=== PATIENT | male | born 1985 | race Caucasian/White ===

== ENCOUNTER 2020-02-14 06:54 | Outpatient (NON) | payer BC, SELFPAY ==
[2020-02-15 16:06] LABS: SARS-CoV-2 RNA PCR Negative
== END 2020-02-14 06:55 ==
PROVIDERS: Visit Provider Physician Assistant
DX: R05 Cough (principal); Z20.828 Contact with and (suspected) exposure to other viral communicable diseases
CPT/HCPCS: 87635; C9803; U0003

== ENCOUNTER 2022-01-08 21:48 | Emergency (ER) | payer BC, SELFPAY ==
--- NOTE | ~2022-01-08 | CT_ITS ---
EXAMINATION: CT brain wo con DATE: 01/08/2022 22:41 INDICATION: Syncope. Left facial injury after fall. TECHNIQUE: Computed tomography (CT) of the head was performed without intravenous contrast. The mA wa s adjusted according to patient size. Iterative reconstruction technique was employed. Exam dose: 60 5.33 mGy-cm total exam DLP. COMPARISON: None FINDINGS: No intracranial mass lesion or hemorrhage or cerebrovascular accident. No midline shift or mass effect. Normal ventricular size. Normal lange-white matter differentiation. No subdural or epidur al hematoma. No skull fracture or bone destruction. The mastoid air cells and included paranasal sinuses are unremarkable. IMPRESSION: Negative Reviewed, dictated and finalized at [facility] Reviewed, dictated and finalized at [facility]. IMPRESSION: Negative
--- NOTE | ~2022-01-08 | CT_ITS ---
EXAMINATION: CT facial bones wo con DATE: 01/08/2022 22:41 INDICATION: Left facial injury after fall TECHNIQUE: Computed tomography (CT) of the facial bones and maxillofacial region was performed withou t intravenous contrast. Automated exposure control and iterative reconstruction technique were employ ed. Exam dose: 309.97 mGy-cm total exam DLP. COMPARISON: None. FINDINGS: The frontozygomatic sutures, orbital rims and floyd, nasal bones, anterior maxillary spine, zygomatic arches and maxillary bones are intact. Normal alignment at the temporomandibular joints. N o mandibular fracture. There are several mucous retention cysts or polyps of the right maxillary sinus measuring up to 1.58 cm and mild mucoperiosteal thickening of the left maxillary sinus. IMPRESSION: No facial fracture Reviewed, dictated and finalized at [facility]. Reviewed, dictated and finalized at [facility]. IMPRESSION: No facial fracture
[2022-01-08 21:51] VITALS: BP 141/98; PULSE 70; RESP 16; TEMP 37.3; O2SAT 99
--- NOTE | 2022-01-08 21:53 | ECG_ITS ---
Measurements Intervals [place] Rate: 77 P: 55 [place]: 155 QRS: 44 QRSD: 100 T: 58 QT: 362 QTc: 411 Interpretive Statements SINUS RHYTHM INCOMPLETE RIGHT BUNDLE BRANCH BLOCK BASELINE ARTIFACT- II, III, AVF BORDERLINE ECG NO PREVIOUS ECG AVAILABLE FOR COMPARISON Electronically Signed On 01-09-2022 7:01:35 CDT by Lamberto Leyva D.O.
--- NOTE | 2022-01-08 22:27 | ED.GENADULT ---
HPI - General Adult General Chief complaint: Syncope Stated complaint: head trauma Time Seen by Provider: 01/08/22 22:06 History of Present Illness HPI narrative: 36-year-old male here for evaluation after having a syncopal episode. Patient states he had just finished eating dinner and was sitting at the kitchen table and he was drinking some liquid that felt he got stuck in his esophagus. Patient states he did not have any coughing or choking spell but states he felt dizzy and lightheadedness and ultimately fell forward and struck his head on the table. Patient did fall to the ground and immediately woke up. Patient states he did have a similar episode which also involve esophageal issue while swallowing that caused a single episode approximately 10 years ago. Related Data Allergies Allergy/AdvReac Type Severity Reaction Status Date / Time Penicillins Allergy Unknown Rash Verified 08/24/18 13:55 Review of Systems Review of Systems: CONSTITUTIONAL: Denies fever, chills, or sweats. EYES: Denies visual changes, redness, or discharge. ENT: Denies rhinorrhea, congestion, sore throat, or otalgia. CARDIOVASCULAR: Denies chest pain, palpitations, or edema. RESPIRATORY: Denies cough or dyspnea. GASTROINTESTINAL: Denies abdominal pain, nausea, vomiting, or diarrhea. GENITOURINARY: Denies dysuria or hematuria. SKIN: Injury to left eyebrow MUSCULOSKELETAL: Denies back pain, joint pain, or myalgia. NEUROLOGIC: Syncope, see HPI Exam Narrative: APPEARANCE: Well appearing, no pain, no distress, well-nourished. HEAD: normocephalic, atraumatic. EYES: PERRLA/EOMI, conjunctivae clear. NOSE: Normal no drainage EARS:TMS clear with good light reflex. THROAT: Pharynx clear, no exudate. NECK: Supple. No adenopathy, no masses. RESPIRATORY: Airway patent, respirations nonlabored. Clear to auscultation bilaterally, no rales, rhonchi, wheezing. CARDIOVASCULAR: Regular rate and rhythm without murmurs rubs or gallops. ABDOMINAL: Soft, nontender, nondistended, normal bowel sounds MUSCULOSKELETAL: Moves all extremities. Strength/ROM intact, No edema, No calf tenderness. NEURO: Alert. Cranial nerves II through XII intact. Grossly intact SKIN: Warm, dry. Normal Color, laceration to left eyebrow Course Course Emergency Course: Potassium was replaced. Patient describes a single episode that may have been triggered from stimulation of the vagus nerve. Patient's head and facial CT was negative. Patient's eyebrow laceration was repaired as described. Patient was updated results of his work-up and he was comfortable with the plan for discharge and close follow-up. All questions concerns were addressed. Vital Signs Vital signs: Vital Signs Temperature 99.2 F 01/08/22 21:51 Pulse Rate 70 01/08/22 21:51 Respiratory Rate 16 01/08/22 21:51 Blood Pressure 141/98 H 01/08/22 21:51 Pulse Oximetry 99 01/08/22 21:51 Oxygen Delivery Room Air 01/08/22 21:51 Temperature 99.2 F 01/08/22 21:51 Pulse Rate 70 01/08/22 21:51 Respiratory Rate 16 01/08/22 21:51 Blood Pressure 141/98 H 01/08/22 21:51 Pulse Oximetry 99 01/08/22 21:51 Oxygen Delivery Room Air 01/08/22 21:51 Procedures Laceration Laceration 1: Site: face Side (If applicable): left Size (cm): 3 Description: linear Depth: simple, single layer Local Anesthetic: lidocaine 1% and with bicarb Amount of anesthesia used (mL): 1 Pre-repair: wound explored and irrigated ====== Skin Level ====== Skin layer closed with: prolene Size (cm): 6-0 Number of sutures: 4 Technique: simple, interrupted ====== Subcutaneous Layer ====== ====== Muscle Layer ====== ====== Tendon Layer ====== Medical Decision Making Vital Signs Vital Signs: Vital Signs Temperature 99.2 F 01/08/22 21:51 Pulse Rate 70 01/08/22 21:51 Respiratory Rate 16 01/08/22 21:51 Blood Pressure 141/
[2022-01-08 22:29] LABS: Basophils Absolute Auto 0.1 K/mm3 (0.0-0.1); Basophils Percent Auto 0.3 % (0.2-1.2); Eosinophils Absolute Auto 0.1 K/mm3 (0-0.3); Eosinophils Percent Auto 0.7 % (0-4.4); Hematocrit 40.5 % (42.0-52.0); Hemoglobin 13.6 g/dL (14.0-18.0); Immature Granulocyte Absolute 0.07 K/mm3 (0.00-0.031); Immature Granulocyte Percent A 0.4 % (0-0.5); Lymphocytes Absolute Auto 2.82 K/mm3 (0.9-3.2); Lymphocytes Percent Auto 16.7 % (18.3-44.2); Mean Corpuscular HGB Conc 33.6 g/dl (32-36); Mean Corpuscular Hemoglobin 31.3 pg (26-34); Mean Corpuscular Volume 93.3 fl (80-100); Mean Platelet Volume 10.3 fl (7.4-10.4); Monocytes Absolute Auto 1.2 K/mm3 (0.1-0.6); Monocytes Percent Auto 7.2 % (2.6-8.5); Neutrophils Absolute Auto 12.6 K/mm3 (1.3-6.7); Neutrophils Percent Auto 74.7 % (45.5-73.1); Platelet Count Result 254 k/mm3 (150-375); Red Blood Count 4.34 M/mm3 (4.6-6.20); Red Cell Distribution Width 13.2 % (11.5-14.5); White Blood Count 16.9 K/mm3 (4.5-10.0)
[2022-01-08 22:40] LABS: Alanine Aminotransferase 14 U/L (6-50); Albumin Level 3.9 g/dL (3.5-5.1); Alkaline Phosphatase 69 U/L (38-126); Anion Gap 13 mmol/L (8-16); Aspartate Amino Transferase 22 U/L (17-59); Bilirubin,Total 0.2 mg/dL (0.2-1.3); Blood Urea Nitrogen 3 mg/dL (9-20); Carbon Dioxide 26 mmol/L (22-30); Chloride 97 mmol/L (98-107); Estimated CRCL calculation 141 ml/min; Estimated Glomerular Filt Rate > 60; Glucose 106 mg/dL (65-110); Potassium 3.1 mmol/L (3.4-5.0); Sodium 136 mmol/L (137-145)
[2022-01-08] MEDS: POTASSIUM CHLORIDE 20 MEQ PACKET (FOR LIQUID) 40 MEQ PO (23:13)
== END 2022-01-09 00:31 | disposition home or self-care (01) ==
PROVIDERS: Emergency Provider Emergency Medicine; PCP Physician Assistant
DX: S01.81XA Laceration without foreign body of other part of head, initial encounter (principal); R55 Syncope and collapse; W07.XXXA Fall from chair, initial encounter
CPT/HCPCS: 12013; 36415; 70450; 70486; 80053; 85025; 93005; 99284; A9270